=== PATIENT | female | born 1950 | race Two or more races ===

== ENCOUNTER 2018-05-08 13:35 | Outpatient (CLI) | payer OTHER | END 2018-05-08 13:40 | disposition home or self-care (01) | LOC: LAB 13:35 | DX: N39.0 Urinary tract infection, site not specified (principal) ==

== ENCOUNTER 2020-10-27 14:24 | Outpatient (CLI) | payer OTHER | END 2020-10-27 14:27 | disposition home or self-care (01) | LOC: LAB 14:24 | PROVIDERS: ATTEND Internal Medicine Cardiovascular Disease | DX: R05 Cough (principal); R06.2 Wheezing; R50.9 Fever, unspecified ==

== ENCOUNTER 2024-10-09 11:17 | Outpatient (CLI) | payer OTHER ==
[2024-10-09 11:47] LABS: HEMATOCRIT 38.5 % (36.0-45.00); HEMOGLOBIN 12.8 g/dL (12.0-15.00); MEAN CELL VOLUME 90.5 fL (80.00-100.00); MEAN CORPUSCULAR HGB CONC 33.1 g/dl (32.0-36.0); PLATELET COUNT 243 K/uL (150-450); RED BLOOD COUNT 4.26 M/uL (4.00-6.00); RED CELL DISTRIBUTION WIDTH 13.6 % (11.5-14.5)
[2024-10-09 12:51] LABS: MYCOPLASMA PNEUMONIAE IGM NON REACTIVE (NO REACTIVE)
== END 2024-10-09 11:18 | disposition home or self-care (01) ==
LOC: LAB 11:17
PROVIDERS: ATTEND Internal Medicine Cardiovascular Disease
DX: J11.1 Influenza due to unidentified influenza virus with other respiratory manifestations (principal); A49.3 Mycoplasma infection, unspecified site; Z20.822 Contact with and (suspected) exposure to COVID-19